=== PATIENT | male | born 1990 | race Hispanic/Latino ===

== ENCOUNTER 2017-07-19 00:36 | Emergency (ER) | payer BC ==
--- NOTE | 2017-07-19 01:06 | ED PDOC ---
Upper Extremity Pain/Injury Time Seen by Provider: 07/19/17 00:56 Chief Complaint (Nursing): Upper Extremity Problem/Injury Chief Complaint (Provider): right shoulder injury History Per: Patient History/Exam Limitations: no limitations Onset/Duration Of Symptoms: Hrs (1) Current Symptoms Are (Timing): Still Present Additional History Per: Patient Additional Complaint(s): 26 y/o male presents with right shoulder injury sustained 1 hour ago. Patient states he was playing hockey and fell directly on right shoulder. Denies numbness/weakness right upper extremity, limitation of movement. Past Medical History Reviewed: Historical Data, Nursing Documentation, Vital Signs Vital Signs: Last Vital Signs Temp 98.2 F 07/19/17 00:50 Pulse 83 07/19/17 00:50 Resp 17 07/19/17 00:50 BP 160/86 H 07/19/17 00:50 Pulse Ox 98 07/19/17 00:50 - Medical History PMH: No Chronic Diseases - Family History Family History: States: No Known Family Hx - Home Medications Home Medications: Ambulatory Orders Medication Instructions Recorded Naproxen [Naprosyn] 500 mg PO Q12 PRN #20 tablet 07/19/17 - Allergies Allergies/Adverse Reactions: Allergies Allergy/AdvReac Type Severity Reaction Status Date / Time No Known Allergies Allergy Verified 07/19/17 00:59 Review of Systems ROS Statement: Except As Marked, All Systems Reviewed And Found Negative Musculoskeletal: Positive for: Shoulder Pain (right) Physical Exam - Reviewed Nursing Documentation Reviewed: Yes Vital Signs Reviewed: Yes - Physical Exam Appears: Positive for: Well, Non-toxic, No Acute Distress Cardiovascular/Chest: Positive for: Regular Rate, Rhythm Respiratory: Positive for: Normal Breath Sounds Pulses-Radial (L): 2+ Pulses-Radial (R): 2+ Extremity: Positive for: Capillary Refill (<2 sec b/l UE), Deformity (right shoulder). Negative for: Normal ROM (unable to move right shoulder due to pain) , Swelling Neurologic/Psych: Positive for: Alert, Oriented. Negative for: Motor/Sensory Deficits - ECG O2 Sat by Pulse Oximetry: 98 - Progress ED Course And Treament: right shoulder xray: + anterior dislocation Consent obtained by patient for shoulder reduction procedure and deep sedation. Patient placed on monitor, end tidal CO2 monitor ED attending Dr. Crum at bedside, IV propofol given. Shoulder reduction attempted using traction/counter traction. Sling and swathe applied Post-reduction film shows successful reduction. Cap refill right upper extremity digits <2 sec post-procedure. Sensation intact 2:15 Patient awake, resting comfortably; vitals stable on monitor 3:10 Patient awake, vitals stable. Patient educated on findings, discharged with instructions to follow up ortho. Rx naproxen provided. Return precautions given. Disposition - Clinical Impression Clinical Impression: Anterior dislocation of right shoulder - Patient ED Disposition Is Patient to be Admitted: No Counseled Patient/Family Regarding: Studies Performed, Diagnosis, Need For Followup, Rx Given - Disposition Referrals: Hayden Rodriges MD [Staff Provider] - Disposition: Routine/Home Disposition Time: 03:11 Condition: IMPROVED Prescriptions: Naproxen [Naprosyn] 500 mg PO Q12 PRN #20 tablet PRN Reason: Pain, Moderate (4-7) Instructions: Shoulder Dislocation (ED), Deep Sedation (ED) Forms: [facility] ([place]), [facility] ED School/Work Excuse
[2017-07-19] MEDS ORDERED: Propofol 10 mg/ml Inj (20 ML) IV ONE (01:23)
[2017-07-19] MEDS ORDERED: Propofol 10 mg/ml Inj (20 ML) ONE (01:55)
[2017-07-19 03:27] VITALS: BP 126/98; PULSE 81; RESP 18; TEMP 97.7; O2SAT 99
--- NOTE | 2017-07-19 08:47 | RAD ---
PROCEDURE: Radiographs of the Right Shoulder HISTORY: fall, possible dislocation COMPARISON: No prior. FINDINGS: BONES: No acute fracture or destructive bony lesion identified. JOINTS: There is a dislocation of the humeral head anterior inferiorly relative to the glenoid process. The acromioclavicular joint and appears intact. SOFT TISSUES: Normal. OTHER FINDINGS: None. IMPRESSION: Anterior inferior dislocation of the proximal right humerus relative to the glenoid process. No apparent fracture identified.
--- NOTE | 2017-07-19 08:49 | RAD ---
PROCEDURE: Radiograph of the Right Shoulder HISTORY: post-reduction COMPARISON: Right shoulder radiographs 07/19/2017 1:02 a.m.. FINDINGS: BONES: Normal. No fracture. JOINTS: Normal apparent reduction of the humeral head at the glenoid process. Acromioclavicular joint remains on unremarkable. SOFT TISSUES: Normal. OTHER FINDINGS: None. IMPRESSION: Apparent adequate reduction of prior right shoulder dislocation as per above. No definite fracture appreciated in this single view of the right shoulder.
== END 2017-07-19 03:30 | disposition home or self-care (01) ==
LOC: H.ER 00:36
DX: S43.014A Anterior dislocation of right humerus, initial encounter (principal); W19.XXXA Unspecified fall, initial encounter; Y92.39 Other specified sports and athletic area as the place of occurrence of the external cause
CPT/HCPCS: 23655; 73030; 99283; J2704